=== PATIENT | male | born 1990 | race Caucasian/White ===

== ENCOUNTER → 2019-05-20 10:15 | Outpatient (BNVA) | payer OTHER, SELFPAY | PROVIDERS: Family Provider Nurse Practitioner Family; Visit Provider Psychiatry & Neurology Psychiatry | DX: F33.2 Major depressive disorder, recurrent severe without psychotic features (principal); F41.9 Anxiety disorder, unspecified | CPT/HCPCS: 99214 ==

== ENCOUNTER → 2019-07-07 13:34 | Outpatient (BNVA) | payer OTHER, SELFPAY | PROVIDERS: Family Provider Nurse Practitioner Family; Visit Provider Family Medicine | DX: R09.89 Other specified symptoms and signs involving the circulatory and respiratory systems (principal); R50.9 Fever, unspecified; J10.1 Influenza due to other identified influenza virus with other respiratory manifestations; M79.10 Myalgia, unspecified site | CPT/HCPCS: 87400 ==

== ENCOUNTER → 2019-07-29 07:46 | Outpatient (BNVA) | payer OTHER, SELFPAY | PROVIDERS: Family Provider Nurse Practitioner Family; Visit Provider Psychiatry & Neurology Psychiatry | DX: F41.1 Generalized anxiety disorder (principal); F33.1 Major depressive disorder, recurrent, moderate; F41.0 Panic disorder [episodic paroxysmal anxiety] | CPT/HCPCS: 99213 ==

== ENCOUNTER → 2019-10-15 07:52 | Outpatient (BNVA) | payer OTHER, SELFPAY | PROVIDERS: Family Provider Nurse Practitioner Family; Visit Provider Psychiatry & Neurology Psychiatry | DX: F41.0 Panic disorder [episodic paroxysmal anxiety] (principal); F33.1 Major depressive disorder, recurrent, moderate; F41.1 Generalized anxiety disorder | CPT/HCPCS: 99213 ==

== ENCOUNTER 2020-01-22 14:45 | Emergency (ER) | payer OTHER, SELFPAY ==
[2020-01-22 15:09] VITALS: BP 128/85; PULSE 84; RESP 16; TEMP 36.4; O2SAT 98; BMI 36.9
--- NOTE | 2020-01-22 15:13 | US_ITS ---
WS: [id number] US soft tissue/extremity 28845 REASON FOR EXAM: left upper thigh - abscess/cellulitis FINDINGS: Abundant subcutaneous fat. There are some linear irregular sonolucencies extending through the fat wh ich presumably represent edema. Deep in the subcutaneous fat of the medial thigh is a 6.1 x 8.9 x 3.7 mm complex shape sonolucency. T here is no color flow Doppler signal within the lesion. Lesion is associated with 2 small very small echogenic foci. There is no shadowing from these foci. One appears to be in the wall of the sonolucen t area and the other appears to be centrally located. US/US soft tissue/extremity 17460 IMPRESSION: Very small focal abnormality seen in the subcutaneous fat which presumably is f luid or fluid like. The 2 discrete echogenic foci could possibly represent fore ign body. The other possibility is findings represent 2 small foci of gas. Presumably this is inflammatory in nature, possibly very small abscess.
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
[2020-01-22 15:21] VITALS: BP 133/85; PULSE 79; RESP 17; O2SAT 98
[2020-01-22 15:34] LABS: Basophils % 0.2 %; Eosinophils # 0.1 10^3/uL (0.0-0.8); Eosinophils % 0.4 %; Hematocrit 41.6 % (42.0-52.0); Lymphocytes # 2.2 10^3/uL (0.8-4.8); Lymphocytes % 17.2 %; Mean Corpuscular HGB Conc 33.7 g/dL (30.0-36.0); Mean Corpuscular Hemoglobin 30.8 pg (28.0-34.0); Mean Corpuscular Volume 91.4 fL (80-94); Mean Platelet Volume 10.4 fL (7.4-10.4); Monocytes # 1.1 10^3/uL (0.2-0.9); Monocytes % 8.9 %; Neutrophils % 72.9 %; Nucleated Red Blood Cells % 0 %; Platelet Count 232 10^3/cmm (130-400); Red Blood Count 4.55 10^6/uL (4.1-5.3); Red Cell Distribution Width 11.9 % (12.1-15.1); White Blood Count 12.8 10^3/uL (4.0-10.0)
[2020-01-22 15:47] LABS: Alanine Aminotransferase 59 U/L (0-41); Albumin Level 4.6 g/dL (3.5-5.2); Alkaline Phosphatase 70 IU/L (40-130); Anion Gap 16.6 (5-19); Aspartate Amino Transferase 28 U/L (0-40); Blood Urea Nitrogen 15 mg/dL (6-20); Calcium 9.3 mg/dL (8.5-10.5); Carbon Dioxide 25 mmol/L (22-29); Chloride 101 mmol/L (98-107); Globulin 2.5 g/dL (1.3-4.6); Glomerular Filtration Rate 79.7 mL/min (90-130); Glucose 100 mg/dL (65-115); Osmolality Calculated 289 mOsm/kg (285-295); Potassium 3.6 mmol/L (3.5-5.1); Sodium 139 mmol/L (136-145); Total Bilirubin 0.3 mg/dL (0.15-1.2); Total Protein 7.1 g/dL (6.6-8.7)
--- NOTE | 2020-01-22 16:13 | W.ED.SKABFB ---
Documented by User: HUI Jacques 01/23/20 07:44 HPI - Skin/Abscess/Foreign Bdy General: Chief complaint: Skin/Abscess/Foreign Body Stated complaint: POSS SPIDER BITE TO L LEG Time Seen by Provider: 01/22/20 14:58 Source: patient Mode of arrival: ambulatory History of Present Illness: HPI narrative: 29-year-old female patient presents to the emergency department with 2-day onset of redness and pain of the right thigh. He reports increased redness and pain today, states experience drainage from the area, purulent in nature. Reports extending redness. MD complaint: abscess/boil Onset (ago): day(s) (2) Location: LLE Severity: moderate Severity scale (1-10): 5 Quality: burning Relieving factors: immobilization Exacerbating factors: movement Associated symptoms: Deny chills, fever(s), nausea or vomiting Review of Systems General: Reports: 10 or more systems reviewed and unremarkable except in HPI and below Const: Denies: fever(s) or chills Eyes: Denies: blurry vision or eye redness ENMT: Denies: throat pain, dental pain or disequilibrium Card: Denies: chest pain, palpitations or irregular heart rhythm Resp: Denies: dyspnea, productive cough, non-productive cough or wheezing GI: Denies: nausea or vomiting : Denies: dysuria Musc: Denies: back pain Skin/Breast: Reports: erythema (Left thigh) and skin tenderness (Left thigh); Denies: rash or pruritus Neuro: Denies: headache(s), weakness in extremities or behavioral changes Psych: Denies: anxiety or depression Zohaib/Lymph: Denies: easy bruising PFSH ED PFSH: Medical History Anxiety Depression Insomnia Social History Smoking and tobacco status: current every day smoker cigarettes and smokeless tobacco Smokeless tobacco user: other Smokeless tobacco details: 1 lb/ week Quit status (tobacco): has tried quititng Number of times tried to quit tobacco: 1 Second hand smoke exposure: No Smoking risk assessment/counseling performed?: Yes Tobacco counseling given: counseling >3 minutes Physical Exam Const: COMMON NORMALS: no acute distress, patient oriented x3, healthy appearing and alert GENERAL APPEARANCE: cooperative, comfortable and well hydrated HENMT: COMMON NORMALS: normocephalic, Normal external nose present and moist oral mucous membranes HEAD & SCALP: normocephalic NOSE: Normal external nose present Eye: COMMON NORMALS: Equal, round and reactive pupils present and EOMs intact bilaterally GENERAL EYE: appearance normal, both eyes and all related structures PUPIL: Yes Equal, round and reactive pupils present Neck/C-Spine: COMMON NORMALS: full ROM and no lymphadenopathy GENERAL: Yes normal visual inspection and Yes trachea midline CERVICAL SPINE: Yes cervical ROM normal Lymph: LYMPHATIC: no lymphadenopathy noted Chest: COMMONS NORMALS: normal inspection of the chest Resp: COMMON NORMALS: normal respiratory effort and clear to auscultation bilaterally AUSCULTATION: clear to auscultation bilaterally Cardio: COMMON NORMALS: regular rhythm, S1 normal heart sound present and S2 normal heart sound present RHYTHM: regular rhythm HEART SOUNDS: S1 normal heart sound present and S2 normal heart sound present GI: COMMON NORMALS: Soft to palpation and non-tender INSPECTION: Yes normal to inspection PALPATION: Yes Soft to palpation : COMMON NORMALS: Yes no CVA tenderness BLADDER/KIDNEY EXAM: Yes no CVA tenderness Back/Pelvis: COMMON NORMALS: no CVA tenderness and thoracic and lumbar spine normal to inspection Extremity: COMMON NORMALS: normal to inspection and capillary refill normal Neuro: COMMON NORMALS: patient oriented x3 and no focal motor deficits SENSORIUM/ORIENTATION: Yes alert Psych: COMMON NORMALS: mental status grossly normal, Normal thought process present and cooperative ACTIVITY/MOTOR BEHAVIOR: Yes appropriate eye contact THOUGHT PROCESS: Normal thought process present Skin: COMMON NORMALS: no rashes or lesions noted and turgor normal GENERAL SKIN EXAM: no rashes or lesions noted and turgor normal WOUNDS: Yes wounds noted (2 cm x 2 cm indurated darkened erythematous area to the central medial thigh, erythema cellulitis encompassing 10 cm.) margins (Irregular) with surrounding erythema Procedures Abscess I/D Site: lower extremity Side (if applicable): left Local Anesthetic: lidocaine 1% and with epi Amount of anesthesia used (mL): 5 Technique: incised with #11 blade Amount of fluid expressed (mL): 5 Irrigation: No Packing used?: none Complications: other (none - culture obtained) Course ED course: 29-year-old male patient presented to the emergency department with 2-day onset of abscess to the left medial thigh. White blood count slightly elevated 12.8. Case discussed with Dr. Hewitt as soft tissue ultrasound revealed 2 discrete echogenic foci which could represent foreign body versus foci of gas. Incision and drainage was completed with small amount of purulent fluid expelled. Cultures were obtained. Advised to administer 1.25 g of vancomycin IV, patient experienced flushing, itching with infusion, infusion was stopped, he was administered Benadryl and Solu-Medrol. Will attempt to clindamycin. Transfer of care to Mahendra Eugene, patient's vital signs are stable, O2 saturation 99 - 100 %. Of note, area of erythema has decreased for margins were marked as he has kept left extremity elevated ibuprofen has been administered. Vital Signs: Vital signs: Vital Signs Temperature 97.5 F L 01/22/20 15:09 Pulse Rate 79 01/22/20 15:21 Respiratory Rate 17 01/22/20 15:21 Blood Pressure 133/85 01/22/20 15:21 Pulse Oximetry 98 01/22/20 15:21 MDM - Skin/Abscess/Foreign Bdy Lab Data: Labs: Lab Results 01/22/20 01/22/20 Range/Units 15:26 15:26 WBC 12.8 H (4.0-10.0) 10^3/ uL RBC 4.55 (4.1-5.3) 10^6/u L Hgb 14.0 (11.7-16.6) g/dL Hct 41.6 L (42.0-52.0) % MCV 91.4 (80-94) fL MCH 30.8 (28.0-34.0) pg MCHC 33.7 (30.0-36.0) g/dL RDW 11.9 L (12.1-15.1) % Plt Count 232 (130-400) 10^3/c mm MPV 10.4 (7.4-10.4) fL Neut % (Auto) 72.9 % Lymph % (Auto) 17.2 % [place] % (Auto) 8.9 % Eos % (Auto) 0.4 % Baso % (Auto) 0.2 % Neut # (Auto) 9.30 H (1.8-7.7) 10^3/u L Lymph # (Auto) 2.2 (0.8-4.8) 10^3/u L [place] # (Auto) 1.1 H (0.2-0.9) 10^3/u L Eos # (Auto) 0.1 (0.0-0.8) 10^3/u L Baso # (Auto) 0.0 (0.0-0.1) 10^3/u L Nucleated RBC % (a uto) 0 % Nucleated RBCs # 0.0 /100WBC Sodium 139 (136-145) mmol/L Potassium 3.6 (3.5-5.1) mmol/L Chloride 101 (98-107) mmol/L Carbon Dioxide 25 (22-29) mmol/L Anion Gap 16.6 (5-19) BUN 15 (6-20) mg/dL Creatinine 1.1 (0.7-1.2) mg/dL GFR Calculation 79.7 L (90-130) mL/min Glucose 100 (65-115) mg/dL Calculated Osmolal ity 289 (285-295) mOsm/k g Calcium 9.3 (8.5-10.5) mg/dL Total Bilirubin 0.3 (0.15-1.2) mg/dL AST 28 (0-40) U/L ALT 59 H (0-41) U/L Alkaline Phosphata se 70 (40-130) IU/L Total Protein 7.1 (6.6-8.7) g/dL Albumin 4.6 (3.5-5.2) g/dL Globulin 2.5 (1.3-4.6) g/dL Imaging Data^: US: Radiologist's impression: [place] [address] Ultrasound Report Signed Patient: Charles Gardner Unit #: [id number] : 1990 Age/Sex: 29 / M ADM Date: 01/22/20 Loc: ER Room/Bed: Attending Dr: Ordering Provider/Ordering MD: Rosemary Christiansen Date of Service: 01/22/20 Procedure(s): US soft tissue/extremity 98194 Accession Number(s): [id number] Report Number: [id number] WS: [id number] US soft tissue/extremity [id number] REASON FOR EXAM: left upper thigh - abscess/cellulitis FINDINGS: Abundant subcutaneous fat. There are some linear irregular sonolucencies extending through the fat which presumably represent edema. Deep in the subcutaneous fat of the medial thigh is a 6.1 x 8.9 x 3.7 mm complex shape sonolucency. There is no color flow Doppler signal within the lesion. Lesion is associated with 2 small very small echogenic foci. There is no shadowing from these foci. One appears to be in the wall of the sonolucent area and the other appears to be centrally located. US/US soft tissue/extremity 48672 IMPRESSION: Very small focal abnormality seen in the subcutaneous fat which presumably is fluid or fluid like. The 2 discrete echogenic foci could possibly represent foreign body. The other possibility is findings represent 2 small foci of gas. Presumably this is inflammatory in nature, possibly very small abscess. Dictated By: Daniel Berumen Jr, MD Signed By: Daniel Berumen Jr, MD Signed Date/Time: 01/22/201628 DD/ 19 Discharge Plan Discharge Patient Disposition: Home Clinical Impression: Abscess Condition: Stable Prescriptions: New clindamycin HCl 150 mg capsule 300 mg PO QID 7 Days Qty: 56 RF: 0 No Action buspirone 10 mg tablet 10 mg PO BID Qty: 180 RF: 0 fluoxetine 40 mg capsule 40 mg PO DAILY Qty: 90 RF: 0 trazodone 50 mg tablet 50 mg PO .HS Qty: 90 RF: 0 Discharge Orders: Discharge Order (Routine); Ordered 01/22/20 Ordered By: Mahendra Eugene Referrals: Deborah Ureña FNP [Family Provider] - Discharge Diet: Regular Discharge Activity: Resume usual activity Patient Instructions: Abscess (ED) Activity Restrictions/Additional Instructions: Follow-up with medical provider as directed. Take medications as prescribed. Return to the ER or your medical provider if condition worsens. Please read and understand discharge instructions. If any questions, please ask. Discharge Date/Time: 01/22/20 18:36 Sign Out Sign Out Data: Patient Sign Out occurred on 01/22/20 at 18:08. Patient's care was discussed, and care was transferred from to FANNY Lock. Coding Level of Care Code ED Dining Room Helper for Chg Fwd Exam Comprehensive Documented by User: FANNY Lock 01/22/20 19:11 HPI - Skin/Abscess/Foreign Bdy General: Chief complaint: Skin/Abscess/Foreign Body Stated complaint: POSS SPIDER BITE TO L LEG Time Seen by Provider: 01/22/20 14:58 PFSH ED PFSH: Medical History Anxiety Depression Insomnia Social History Smoking and tobacco status: current every day smoker cigarettes and smokeless tobacco Smokeless tobacco user: other Smokeless tobacco details: 1 lb/ week Quit status (tobacco): has tried quititng Number of times tried to quit tobacco: 1 Second hand smoke exposure: No Smoking risk assessment/counseling performed?: Yes Tobacco counseling given: counseling >3 minutes Course Vital Signs: Vital signs: Vital Signs Temperature 97.5 F L 01/22/20 15:09 Pulse Rate 79 01/22/20 15:21 Respiratory Rate 17 01/22/20 15:21 Blood Pressure 133/85 01/22/20 15:21 Pulse Oximetry 98 01/22/20 15:21 MDM - Skin/Abscess/Foreign Bdy MDM Narrative: Medical decision making narrative: I took over care of patient from [facility]. Patient will be discharged after IV antibiotics complete. He will be sent home on clindamycin and told to follow-up with his PCP in the next couple days to reevaluate. Return to ED precautions given. Patient understood and agree with plan. Lab Data: Attestation: I reviewed the patient's lab results. Labs: Lab Results 01/22/20 01/22/20 Range/Units 15:26 15:26 WBC 12.8 H (4.0-10.0) 10^3/ uL RBC 4.55 (4.1-5.3) 10^6/u L Hgb 14.0 (11.7-16.6) g/dL Hct 41.6 L (42.0-52.0) % MCV 91.4 (80-94) fL MCH 30.8 (28.0-34.0) pg MCHC 33.7 (30.0-36.0) g/dL RDW 11.9 L (12.1-15.1) % Plt Count 232 (130-400) 10^3/c mm MPV 10.4 (7.4-10.4) fL Neut % (Auto) 72.9 % Lymph % (Auto) 17.2 % [place] % (Auto) 8.9 % Eos % (Auto) 0.4 % Baso % (Auto) 0.2 % Neut # (Auto) 9.30 H (1.8-7.7) 10^3/u L Lymph # (Auto) 2.2 (0.8-4.8) 10^3/u L [place] # (Auto) 1.1 H (0.2-0.9) 10^3/u L Eos # (Auto) 0.1 (0.0-0.8) 10^3/u L Baso # (Auto) 0.0 (0.0-0.1) 10^3/u L Nucleated RBC % (a uto) 0 % Nucleated RBCs # 0.0 /100WBC Sodium 139 (136-145) mmol/L Potassium 3.6 (3.5-5.1) mmol/L Chloride 101 (98-107) mmol/L Carbon Dioxide 25 (22-29) mmol/L Anion Gap 16.6 (5-19) BUN 15 (6-20) mg/dL Creatinine 1.1 (0.7-1.2) mg/dL GFR Calculation 79.7 L (90-130) mL/min Glucose 100 (65-115) mg/dL Calculated Osmolal ity 289 (285-295) mOsm/k g Calcium 9.3 (8.5-10.5) mg/dL Total Bilirubin 0.3 (0.15-1.2) mg/dL AST 28 (0-40) U/L ALT 59 H (0-41) U/L Alkaline Phosphata se 70 (40-130) IU/L Total Protein 7.1 (6.6-8.7) g/dL Albumin 4.6 (3.5-5.2) g/dL Globulin 2.5 (1.3-4.6) g/dL Discharge Plan Discharge Patient Disposition: Home Clinical Impression: Abscess Condition: Stable Prescriptions: New clindamycin HCl 150 mg capsule 300 mg PO QID 7 Days Qty: 56 RF: 0 No Action buspirone 10 mg tablet 10 mg PO BID Qty: 180 RF: 0 fluoxetine 40 mg capsule 40 mg PO DAILY Qty: 90 RF: 0 trazodone 50 mg tablet 50 mg PO .HS Qty: 90 RF: 0 Discharge Orders: Discharge Order (Routine); Ordered 01/22/20 Ordered By: Mahendra Eugene Referrals: Deborah Ureña FNP [Family Provider] - Discharge Diet: Regular Discharge Activity: Resume usual activity Patient Instructions: Abscess (ED) Activity Restrictions/Additional Instructions: Follow-up with medical provider as directed. Take medications as prescribed. Return to the ER or your medical provider if condition worsens. Please read and understand discharge instructions. If any questions, please ask. Discharge Date/Time: 01/22/20 18:36 Sign Out Sign Out Data: Patient Sign Out occurred on 01/22/20 at 18:08. Patient's care was discussed, and care was transferred from to FANNY Lock. Coding Level of Care Code ED Dining Room Helper for Bhakti Fwaarti Exam Comprehensive
[2020-01-22] MEDS: ibuprofen 800 mg tablet PO (17:02)
[2020-01-22] MEDS: clindamycin 600 MG/50 ML PREMIX 100 MG IV (18:00)
[2020-01-22] MEDS: diphenhydrAMINE 50 mg/mL SDV 1mL IVP (18:04)
[2020-01-22] MEDS: sodium chloride 0.9% 500 ML 999 ML IV (18:04)
--- NOTE | 2020-01-23 09:36 | DCPLANNER ---
cleaning manager had message to schedule a follow up appointment for patient with primary care physician. Patient sees Deborah Ureña at [facility], correctional casework specialist called [facility], a follow up appointment was scheduled for Thursday, January 23, 2020 at 1:00 with Deborah Ureña at the [facility]. cleaning manager faxed patients information to the clinic. Clinic will call patient with appointment information.
--- NOTE | 2020-02-03 14:17 | DCPLANNER ---
Patient had a follow up appointment scheduled for 01.23.20 with [facility] - patient did attend appointment.
== END 2020-01-22 18:36 | disposition home or self-care (01) ==
PROVIDERS: Nurse Practitioner Family; Emergency Provider Physician Assistant; Family Provider Nurse Practitioner Family
DX: L02.416 Cutaneous abscess of left lower limb (principal); F17.220 Nicotine dependence, chewing tobacco, uncomplicated
CPT/HCPCS: 10060; 12345; 36415; 76882; 80053; 85025; 87070; 87075; 87077; 87186; 87205; 96365; 96367; 96375; 99283; 99284; J1200; J2930; J3370; J3490; J7040; J7050

== ENCOUNTER 2020-08-12 17:25 | Emergency (ER) | payer SELFPAY ==
[2020-08-12 18:20] VITALS: BP 118/84; PULSE 81; RESP 18; TEMP 37.2; O2SAT 97; BMI 35.2
--- NOTE | 2020-08-12 19:15 | XRR_ITS ---
PROCEDURE INFORMATION: Exam: XR Left Finger(s) Exam date and time: 08/12/2020 7:35 PM Age: 30 years old Clinical indication: Left index finger pain. Injury. TECHNIQUE: Imaging protocol: XR Left fingers. Views: Minimum 2 views. COMPARISON: US soft tissue/extremity [id number] 01/22/2020 3:25 PM FINDINGS: No fracture, dislocation or subluxation. No periosteal reaction or supsicious bone lesion. No significant osteoarthritis. XR/XR finger LT min 2V [id number] IMPRESSION: No acute fracture.
[2020-08-12 19:58] VITALS: PULSE 80
[2020-08-12 20:06] VITALS: BP 123/95; PULSE 73; RESP 16; O2SAT 98
--- NOTE | 2020-08-12 20:13 | ED_ITS ---
HPI - Extremity Problem General: Chief complaint: Extremity Injury, Upper Stated complaint: L. HAND INJURY Time Seen by Provider: 08/12/20 19:47 Source: patient Mode of arrival: ambulatory Limitations: no limitations History of Present Illness: HPI Narrative: 30-year-old male patient presents to the emergency department with left index finger injury. He reports Sunday, was working electrician apprentice powerhouse, had his left index finger on the tip of the electrician apprentice powerhouse when he pushed the trigger on accident. 400 PSI pressure with water engaged into the left index finger, volar surface. He states water did not have any chemicals or agents in it. He reports pain and swelling that followed, was able to get majority of the water out of his finger. He states today, pain has increased with limited flexion due to pain. He reports pain is shooting up his arm, he denies fever or chills. He has history of MRSA. MD Complaint: extremity pain and extremity swelling Pain Consistency: constant Location: left and upper extremity (index finger) Quality: aching, dull and constant Radiation: distal Relieving factors: immobilization, elevation and rest Exacerbating factors: range of motion Associated symptoms: Deny chest pain, fever(s) or rash Review of Systems General: Reports: 10 or more systems reviewed and unremarkable except in HPI and below Const: Denies: fever(s), chills or diaphoresis Eyes: Denies: blurry vision or eye redness ENMT: Denies: throat pain, dental pain or disequilibrium Card: Denies: chest pain, palpitations or irregular heart rhythm Resp: Denies: dyspnea, productive cough, non-productive cough or wheezing GI: Denies: abdominal pain, nausea or vomiting : Denies: dysuria Musc: Reports: joint pain, joint swelling and joint warmth; Denies: neck pain, back pain, joint stiffness or muscle cramps Skin/Breast: Reports: erythema, skin tenderness and changes in skin color; Denies: rash or pruritus Neuro: Denies: headache(s), weakness in extremities or behavioral changes Psych: Denies: anxiety or depression Zohaib/Lymph: Denies: easy bruising PFS ED PFSH: Medical History (Updated 08/12/20 @ 20:48 by HUI Jacques) Anxiety Depression Insomnia Social History Smoking and tobacco status: current every day smoker cigarettes and smokeless tobacco Smokeless tobacco user: other Smokeless tobacco details: 1 lb/ week Quit status (tobacco): has tried quititng Number of times tried to quit tobacco: 1 Second hand smoke exposure: No Smoking risk assessment/counseling performed?: Yes Tobacco counseling given: counseling >3 minutes Physical Exam Const: COMMON NORMALS: no acute distress, patient oriented x3, healthy appearing and alert GENERAL APPEARANCE: cooperative, comfortable and well hydrated HENMT: COMMON NORMALS: normocephalic, Normal external nose present and moist oral mucous membranes HEAD & SCALP: normocephalic NOSE: Normal external nose present Eye: COMMON NORMALS: Equal, round and reactive pupils present and EOMs intact bilaterally GENERAL EYE: appearance normal, both eyes and all related structures PUPIL: Yes Equal, round and reactive pupils present Neck/C-Spine: COMMON NORMALS: full ROM and no lymphadenopathy GENERAL: Yes normal visual inspection and Yes trachea midline CERVICAL SPINE: Yes cervical ROM normal Lymph: LYMPHATIC: no lymphadenopathy noted Chest: COMMONS NORMALS: normal inspection of the chest Resp: COMMON NORMALS: normal respiratory effort and clear to auscultation bilaterally AUSCULTATION: clear to auscultation bilaterally Cardio: COMMON NORMALS: regular rhythm, S1 normal heart sound present and S2 normal heart sound present RHYTHM: regular rhythm HEART SOUNDS: S1 normal heart sound present and S2 normal heart sound present GI: COMMON NORMALS: Soft to palpation and non-tender INSPECTION: Yes normal to inspection PALPATION: Yes Soft to palpation : COMMON NORMALS: Yes no CVA tenderness BLADDER/KIDNEY EXAM: Yes no CVA tenderness Back/Pelvis: COMMON NORMALS: no CVA tenderness and thoracic and lumbar spine normal to inspection Extremity: COMMON NORMALS: normal to inspection, capillary refill normal, no clubbing, cyanosis or edema, no calf tenderness and no pedal edema GENERAL: Yes normal exam except as noted OTHER: Left index finger with edema and swelling. Erythema present, distal tip volar service with puncture wound present, discolored dark area surrounding present. Approximately 1 cm, no redness /swelling to the hand proximal finger or arm noted. Neuro: COMMON NORMALS: patient oriented x3 and no focal motor deficits SENSORIUM/ORIENTATION: Yes alert Psych: COMMON NORMALS: mental status grossly normal, Normal thought process present and cooperative ACTIVITY/MOTOR BEHAVIOR: Yes appropriate eye contact THOUGHT PROCESS: Normal thought process present Skin: COMMON NORMALS: no rashes or lesions noted and turgor normal GENERAL SKIN EXAM: no rashes or lesions noted and turgor normal Course Consultations: Consultation #1: Dr. Polanco, hand surgeon, discussed history of present illness, x-ray findings of no evident fracture; pictures of affected area were texted to him for review. Advised need for warm compresses, antibioti cs and follow-up with primary care provider. Time: 20:45 Vital Signs: Vital signs: Vital Signs Temperature 98.9 F 08/12/20 18:20 Pulse Rate 76 08/12/20 21:08 Respiratory Rate 18 08/12/20 21:08 Blood Pressure 151/94 08/12/20 21:08 Pulse Oximetry 97 08/12/20 21:08 Discharge Plan Discharge Patient Disposition: Home Clinical Impression: Cellulitis of finger of left hand Injury of left index finger Qualifiers: Encounter type: initial encounter Qualified Code(s): S69.92XA - Unspecified injury of left wrist, hand and finger(s), initial encounter Condition: Stable Prescriptions: New doxycycline hyclate 100 mg capsule 100 mg PO BID 7 Days Qty: 14 RF: 0 No Action buspirone 10 mg tablet 10 mg PO BID Qty: 180 RF: 0 trazodone 50 mg tablet 50 mg PO .HS Qty: 90 RF: 0 fluoxetine 20 mg capsule 60 mg PO .HS Qty: 90 RF: 2 Discharge Orders: Discharge ED (Routine); Ordered 08/12/20 Ordered By: Rosemary Christiansen Discharge Diet: Usual diet Discharge Activity: Limit activity as instructed Patient Instructions: Diphtheria/Acellular Pertussis/Tetanus Booster Vaccine (Tdap) (Injection), Puncture Wound (ED), Cellulitis (ED), Opioid Safety Activity Restrictions/Additional Instructions: Take antibiotics until all gone, even if better Apply warm moist compresses to the finger several times daily to help with pain, keep the finger elevated Return to the emergency department if you develop redness of the hand, red streaking or other concerning symptoms such as fever or chills Continue ibuprofen, 600 mg 3 times daily along with Tylenol, 1 g 3 times daily for pain Follow-up with your primary care provider next week to ensure you are improving Coding Level of Care Code ED [employer] F[employer] Exam Comprehensive
[2020-08-12] MEDS: HYDROcodone-acetaminophen 5-325 mg Tablet 1 TAB PO (20:14)
[2020-08-12 20:36] VITALS: BP 140/92; PULSE 87; RESP 16; O2SAT 99
[2020-08-12] MEDS: doxycycline 100 mg Tablet PO (20:57)
[2020-08-12] MEDS: tetanus-dipt-pertussis 0.5 mL SDV IM (21:02)
[2020-08-12 21:08] VITALS: BP 151/94; PULSE 76; RESP 18; O2SAT 97
== END 2020-08-12 21:18 | disposition home or self-care (01) ==
PROVIDERS: Emergency Provider Nurse Practitioner Family
DX: S69.92XA Unspecified injury of left wrist, hand and finger(s), initial encounter (principal); L03.012 Cellulitis of left finger; F17.220 Nicotine dependence, chewing tobacco, uncomplicated; Z23 Encounter for immunization; W31.89XA Contact with other specified machinery, initial encounter
CPT/HCPCS: 73140; 90471; 90715; 99283

== ENCOUNTER 2020-08-15 11:12 | Emergency (ER) | payer SELFPAY ==
[2020-08-15 11:16] VITALS: BP 134/96; PULSE 76; RESP 18; TEMP 36.7; O2SAT 98; BMI 35.2
[2020-08-15 11:32] VITALS: BP 157/98; PULSE 66; RESP 16; O2SAT 97
--- NOTE | 2020-08-15 11:41 | XRR_ITS ---
PROCEDURE INFORMATION: Exam: XR Left Finger(s) Exam date and time: 08/15/2020 11:48 AM Age: 30 years old Clinical indication: Injury or trauma; Other: silverware washer injury, worse swelling, pain; Swelling (edema); Left index finger TECHNIQUE: Imaging protocol: XR Left fingers. Views: Minimum 2 views. COMPARISON: CR XR finger LT min 2V [id number] 08/12/2020 7:24 PM FINDINGS: Bones/joints: There is no acute fracture or dislocation. No inflammatory erosions. Soft tissues: The there is soft tissue edema. No foreign body. XR/XR finger LT min 2V [id number] IMPRESSION: Soft tissue edema. No acute bony abnormality.
--- NOTE | 2020-08-15 11:55 | W.ED.EXTPRO ---
HPI - Extremity Problem General: Chief complaint: Extremity Injury, Upper Stated complaint: LEFT HAND PAIN Time Seen by Provider: 08/15/20 11:14 History of Present Illness: HPI Narrative: The patient is a 30-year-old male who comes to the ER again for washery boss injury to the tip of left index finger. He was here 3 days ago and the injury occurred 2 days prior to that. He said he had the tip of his finger on a 4000 PSI washery boss and accidentally pulled the trigger. He said there was some water in his hand and he was able to squeeze it out at that time. When he was seen at the ER 2 days later he was given doxycycline and recommended to follow-up with his primary care physician. The provider spoke with a hand surgeon at [facility]. He comes in today for continued pain and swelling. He does have some dark red discoloration to the tip of his finger where the injury was. Good cap refill. Sensation intact. He does have some pain with flexion and extension of the finger. He says the pain and swelling is increasing. He is taking the doxycycline as directed. MD Complaint: extremity pain Onset (ago): day(s) (5) Location: left Severity scale (1-10): 10 Quality: sharp Radiation: none Relieving factors: nothing Exacerbating factors: range of motion Associated symptoms: Reports no associated symptoms; Deny chest pain or rash Review of Systems General: Reports: 10 or more systems reviewed and unremarkable except in HPI and below Const: Denies: fatigue Eyes: Denies: change in vision, blurry vision or eye redness ENMT: Denies: throat pain, swelling of lips/tongue, ear or mastoid pain or nasal congestion Card: Denies: chest pain, palpitations, irregular heart rhythm, edema, dyspnea on exertion or orthopnea Resp: Denies: dyspnea, productive cough or non-productive cough GI: Denies: abdominal pain, diarrhea or GI cramping : Denies: flank pain, urinary frequency or urinary urgency Musc: Denies: neck pain, back pain, extremity pain, joint pain, joint redness, limited range of motion or muscle weakness Skin/Breast: Denies: rash, pruritus, erythema, skin pain or skin tenderness Neuro: Denies: headache(s), numbness in extremities, weakness in extremities, sensory changes, difficulty walking, dizziness, confusion or Slurred speech present Psych: Denies: anxiety or depression Endo: Denies: polyuria All/Imm: Denies: urticaria, throat swelling or tongue swelling PFSH ED PFSH: Medical History (Updated 08/15/20 @ 13:47 by Ned Wright MD) Anxiety Depression Insomnia Social History Smoking and tobacco status: current every day smoker cigarettes and smokeless tobacco Smokeless tobacco user: other Smokeless tobacco details: 1 lb/ week Quit status (tobacco): has tried quititng Number of times tried to quit tobacco: 1 Second hand smoke exposure: No Smoking risk assessment/counseling performed?: Yes Tobacco counseling given: counseling >3 minutes Physical Exam Const: COMMON NORMALS: no acute distress, average body habitus, patient oriented x3, no limitations, healthy appearing, alert and well nourished GENERAL APPEARANCE: cooperative, comfortable, well kempt and well developed ORIENTATION/CONSCIOUSNESS: Yes awake, Yes oriented to person, Yes oriented to place and Yes oriented to time HENMT: COMMON NORMALS: normocephalic, external ears normal and Normal external nose present HEAD & SCALP: normal to inspection and normocephalic NOSE: Normal external nose present EXTERNAL EAR: Yes external ears normal MOUTH: Normal oral and palatal mucosa present THROAT: posterior oropharynx normal Eye: COMMON NORMALS: Equal, round and reactive pupils present and EOMs intact bilaterally GENERAL EYE: appearance normal, both eyes and all related structures PUPIL: Yes Equal, round and reactive pupils present Neck/C-Spine: COMMON NORMALS: full ROM, no lymphadenopathy, no meningeal signs and no JVD GENERAL: Yes normal visual inspection Lymph: LYMPHATIC: no lymphadenopathy noted Chest: COMMONS NORMALS: normal inspection of the chest and normal palpation of entire chest wall Resp: COMMON NORMALS: normal respiratory effort, No retractions, No use of accessory muscles, clear to auscultation bilaterally and percussion normal EFFORT & INSPECTION: Yes able to speak in complete sentences AUSCULTATION: clear to auscultation bilaterally PERCUSSION: percussion normal Cardio: COMMON NORMALS: no JVD, regular rate, regular rhythm, S1 normal heart sound present, S2 normal heart sound present and Peripheral pulses 2+ throughout RATE: regular rate RHYTHM: regular rhythm HEART SOUNDS: S1 normal heart sound present and S2 normal heart sound present PERIPHERAL PULSES: Peripheral pulses 2+ throughout GI: COMMON NORMALS: Normal to inspection, nondistended, normoactive bowel sounds present, Soft to palpation, non-tender and no masses INSPECTION: Yes normal to inspection PALPATION: Yes Soft to palpation : COMMON NORMALS: Yes no CVA tenderness BLADDER/KIDNEY EXAM: Yes no CVA tenderness Back/Pelvis: COMMON NORMALS: no CVA tenderness, thoracic and lumbar spine normal to inspection, no thoracic nor lumbar tenderness and thoraco-lumbar ROM normal Extremity: COMMON NORMALS: normal to inspection, full ROM, capillary refill normal, no joint enlargement and no pedal edema NARRATIVE EXTREMITY EXAM: Left first digit pain swelling and tenderness worst at the tip of the finger where he injured it from a washery boss. There is a dark red spot there approximately 1 cm 5.5 cm in diameter. That is likely aging blood under the skin. There is some swelling to the finger. He has sensation intact. Cap refill is brisk at the tip of the finger. No bluish coloration. He does have some pain with flexion and extension of his finger. No pain in his hand. GENERAL: Yes normal exam except as noted Neuro: COMMON NORMALS: patient oriented x3, CN's II-XII intact bilaterally, moves all extremities, no focal motor deficits, no sensory deficits noted and gait normal SENSORIUM/ORIENTATION: Yes alert, Yes oriented to person, Yes oriented to place and Yes oriented to time MENINGEAL SIGNS: Yes no meningeal signs Psych: COMMON NORMALS: mental status grossly normal, Normal thought process present, cooperative, normal affect and speech normal APPEARANCE: Yes well kempt ATTITUDE: Yes calm SPEECH: Yes normal speech THOUGHT PROCESS: Normal thought process present Skin: COMMON NORMALS: no rashes or lesions noted GENERAL SKIN EXAM: no rashes or lesions noted Course Vital Signs: Vital signs: Vital Signs Temperature 98.0 F 08/15/20 11:16 Pulse Rate 66 08/15/20 11:32 Respiratory Rate 16 08/15/20 11:32 Blood Pressure 157/98 08/15/20 11:32 Pulse Oximetry 97 08/15/20 11:32 MDM - Extremity (Nontraumatic) MDM Narrative: Medical decision making narrative: Patient comes to the ER 5 days after an injury to his fingertips with a pressure sprayer. He has had some swelling and a small area of necrotic tissue. Discussed with Dr. Bedolla who recommends calling tomorrow for a Sunday appointment in her clinic. I have given them the phone number and the address. We will also give a Medrol Dosepak and hydrocodone to help with his pain. ER with worsening symptoms at any time otherwise follow-up with Dr. Bedolla. Lab Data: Labs: Lab Results 08/15/20 08/15/20 08/15/20 Range/Units 12:07 12:07 12:58 WBC 7.3 (4.0-10.0) 10^3/ uL RBC 4.87 (4.1-5.3) 10^6/u L Hgb 14.9 (11.7-16.6) g/dL Hct 45.6 (42.0-52.0) % MCV 93.6 (80-94) fL MCH 30.6 (28.0-34.0) pg MCHC 32.7 (30.0-36.0) g/dL RDW 11.6 L (12.1-15.1) % Plt Count 244 (130-400) 10^3/c mm MPV 10.5 H (7.4-10.4) fL Neut % (Auto) 71.0 % Lymph % (Auto) 19.4 % [place] % (Auto) 8.3 % Eos % (Auto) 0.5 % Baso % (Auto) 0.4 % Neut # (Auto) 5.20 (1.8-7.7) 10^3/u L Lymph # (Auto) 1.4 (0.8-4.8) 10^3/u L [place] # (Auto) 0.6 (0.2-0.9) 10^3/u L Eos # (Auto) 0.0 (0.0-0.8) 10^3/u L Baso # (Auto) 0.0 (0.0-0.1) 10^3/u L Nucleated RBC % (a uto) 0 % Nucleated RBCs # 0.0 /100WBC Sodium Cancelled 136 Potassium Cancelled 3.9 Chloride Cancelled 102 Carbon Dioxide Cancelled 26 Anion Gap Cancelled 11.9 BUN Cancelled 15 Creatinine Cancelled 0.8 GFR Calculation Cancelled 114.3 Glucose Cancelled 120 H Calculated Osmolal ity Cancelled 284 L Lactic Acid (0.5-2.2) mmol/L Calcium Cancelled 8.7 Total Bilirubin Cancelled 0.4 AST Cancelled 18 ALT Cancelled 46 H Alkaline Phosphata se Cancelled 72 Total Protein Cancelled 7.1 Albumin Cancelled 4.3 Globulin Cancelled 2.8 0502 Range/Units 12:58 WBC (4.0-10.0) 10^3/ uL RBC (4.1-5.3) 10^6/u L Hgb (11.7-16.6) g/dL Hct (42.0-52.0) % MCV (80-94) fL MCH (28.0-34.0) pg MCHC (30.0-36.0) g/dL RDW (12.1-15.1) % Plt Count (130-400) 10^3/c mm MPV (7.4-10.4) fL Neut % (Auto) % Lymph % (Auto) % [place] % (Auto) % Eos % (Auto) % Baso % (Auto) % Neut # (Auto) (1.8-7.7) 10^3/u L Lymph # (Auto) (0.8-4.8) 10^3/u L [place] # (Auto) (0.2-0.9) 10^3/u L Eos # (Auto) (0.0-0.8) 10^3/u L Baso # (Auto) (0.0-0.1) 10^3/u L Nucleated RBC % (a uto) % Nucleated RBCs # /100WBC Sodium Potassium Chloride Carbon Dioxide Anion Gap BUN Creatinine GFR Calculation Glucose Calculated Osmolal ity Lactic Acid 1.0 (0.5-2.2) mmol/L Calcium Total Bilirubin AST ALT Alkaline Phosphata se Total Protein Albumin Globulin Discharge Plan Discharge Patient Disposition: Home Clinical Impression: Injury of left index finger Condition: Stable Prescriptions: New Medrol ([place]) 4 mg tablets,dose pack See Rx Instructions .ROUTE .COMPLEX Qty: 21 RF: 0 hydrocodone-acetaminophen 5-325 mg tablet 1 tab PO Q6H PRN (Reason: pain) Qty: 14 RF: 0 No Action buspirone 10 mg tablet 10 mg PO BID Qty: 180 RF: 0 doxycycline hyclate 100 mg capsule 100 mg PO BID 7 Days Qty: 14 RF: 0 trazodone 50 mg tablet 50 mg PO BEDTIME RF: 0 fluoxetine 20 mg capsule 60 mg PO BEDTIME RF: 0 Discharge Orders: Discharge ED (Routine); Ordered 08/15/20 Ordered By: Ned Wright Discharge Diet: Advance as tolerated Discharge Activity: Resume usual activity Patient Instructions: Finger Sprain (ED), Opioid Safety Activity Restrictions/Additional Instructions: You have had an injury to your finger 5 days ago from a washery boss. There is likely a small infection and a small area of tissue. I have spoken to Dr. Mine Bedolla who recommends calling her clinic tomorrow at [phone] and getting an appointment for Sunday. Continue taking the doxycycline as well. The address is [address] [place] [address]. [address] [place] [address] Coding Level of Care Code ED Receiving [employer] for [employer] F[employer] Exam Comprehensive
[2020-08-15] MEDS: morphine 4 mg/mL SDV 1 mL 2 MG IVP (12:09)
[2020-08-15] MEDS: ketorolac 30 mg/mL INJ IVP (12:09)
[2020-08-15 12:24] LABS: Basophils % 0.4 %; Eosinophils % 0.5 %; Hematocrit 45.6 % (42.0-52.0); Hemoglobin 14.9 g/dL (11.7-16.6); Lymphocytes # 1.4 10^3/uL (0.8-4.8); Lymphocytes % 19.4 %; Mean Corpuscular HGB Conc 32.7 g/dL (30.0-36.0); Mean Corpuscular Hemoglobin 30.6 pg (28.0-34.0); Mean Corpuscular Volume 93.6 fL (80-94); Mean Platelet Volume 10.5 fL (7.4-10.4); Monocytes # 0.6 10^3/uL (0.2-0.9); Monocytes % 8.3 %; Nucleated Red Blood Cells % 0 %; Platelet Count 244 10^3/cmm (130-400); Red Blood Count 4.87 10^6/uL (4.1-5.3); Red Cell Distribution Width 11.6 % (12.1-15.1); White Blood Count 7.3 10^3/uL (4.0-10.0)
[2020-08-15 13:25] LABS: Alanine Aminotransferase 46 U/L (0-41); Albumin Level 4.3 g/dL (3.5-5.2); Alkaline Phosphatase 72 IU/L (40-130); Anion Gap 11.9 (5-19); Aspartate Amino Transferase 18 U/L (0-40); Blood Urea Nitrogen 15 mg/dL (6-20); Calcium 8.7 mg/dL (8.5-10.5); Carbon Dioxide 26 mmol/L (22-29); Chloride 102 mmol/L (98-107); Globulin 2.8 g/dL (1.3-4.6); Glomerular Filtration Rate 114.3 mL/min (90-130); Glucose 120 mg/dL (65-115); Osmolality Calculated 284 mOsm/kg (285-295); Potassium 3.9 mmol/L (3.5-5.1); Sodium 136 mmol/L (136-145); Total Bilirubin 0.4 mg/dL (0.15-1.2); Total Protein 7.1 g/dL (6.6-8.7)
== END 2020-08-15 14:20 | disposition home or self-care (01) ==
PROVIDERS: Emergency Provider Family Medicine
DX: S69.92XA Unspecified injury of left wrist, hand and finger(s), initial encounter (principal); F17.220 Nicotine dependence, chewing tobacco, uncomplicated; X58.XXXA Exposure to other specified factors, initial encounter
CPT/HCPCS: 73140; 80053; 83605; 85025; 96374; 96375; 99284; J1885; J2270; J2930

== ENCOUNTER → 2022-01-23 15:27 | Outpatient (BNVA) | payer OTHER, BC, SELFPAY | PROVIDERS: Visit Provider Podiatrist Foot & Ankle Surgery | DX: M72.2 Plantar fascial fibromatosis (principal); M77.41 Metatarsalgia, right foot; M77.42 Metatarsalgia, left foot; M24.571 Contracture, right ankle; M21.611 Bunion of right foot; M21.612 Bunion of left foot; M21.40 Flat foot [pes planus] (acquired), unspecified foot | CPT/HCPCS: 73630 ==

== ENCOUNTER 2023-10-16 14:00 | Outpatient (CLI) | payer BC, MEDICAID, SELFPAY | END 2023-10-16 14:01 | disposition home or self-care (01) | LOC: SLEEP 10-17 13:31 | PROVIDERS: Visit Provider Nurse Practitioner Family | DX: G47.33 Obstructive sleep apnea (adult) (pediatric) (principal) | CPT/HCPCS: G0399 ==